=== PATIENT | male | born 1945 | race African-American/Black ===

== ENCOUNTER 2017-07-25 17:29 | Emergency (ER) | payer MEDICARE, MEDICAID ==
[~2017-07-25] VITALS: Ht 180.3 cm; Wt 109.1 kg
[~2017-07-25 17:29] MED LIST: ACCUPRIL10 MG PO; ACCUPRIL20TAB PO; ACCURETIC 25 MG1 TAB PO; ALDACTONE 100M100 MG PO; AMLODIPINE5 MG PO; ANTI-GAS 8080 MG PO; B-12 100 MCG PO; B-12500 MCG PO; CEFTIN500 MG PO; COLACE 100100 MG/CAP PO; COLACE-T100 MG PO; DAZIDOX20 MG PO; DEXILANT60 MG PO; DILAUDID 2MG TAB2 MG PO; DOCUSATE100 MG PO; ENULOSE10 GM/151 PO; EPA FISH OIL1000 MG PO; FERRO-TIME325 MG PO; FERROUS SULFATE65 MG PO; FOLIC ACID 11 MG/TA1 PO; FOLIC ACID800 MCG PO; FUROCOT40 MG PO; GLUCOPHAGE XR500 M1 PO; GLUCOPHAGE500 MG/TAB PO; HCTZ 25MG TAB25 MG PO; HUMULIN 70/3100 U/M1 SQ; INDERAL 10MG10 MG PO; INDERAL10 MG PO; KEPPRA 500MG500 MG PO; LACTULOSE SYRUP1 ML PO; LACTULOSE10 GM/15 M PO; LANTUS SOLOS100 U/ML SQ; LANTUS100 U/ML; LANTUS100 U/ML SC; LASIX 20MG TABL20 MG PO; LASIX 40MG TABL40 MG PO; LEVAQUIN 5500 MG/TA1 PO; LEVBID0.375 MG PO; METFORMIN500 MG PO; METOPROLOL SUC100 MG PO; MS CONTIN15 MG PO; MULTI VITAMINS1 TAB PO; NEURONTIN300 MG/CAP PO; NEXIUM 20MG20 MG PO; NEXIUM 40MG40 MG PO; NORVASC 5MG5 MG/TAB PO; NORVASC5 MG PO; NOVOLIN 70/30 710 ML SQ; NOVOLIN 70/301.5 M1 SC; NOVOLIN 70/301.5 ML SC; NOVOLIN R100 U/ML IJ; OMEPRAZOLE40 MG PO; OXYCODONE10 MG PO; OXYCODONE5 M1 PO; PRIL40 PO; PRILOSEC 20MG20 MG PO; PROTONIX 40MG T40 MG PO; ROXICODONE 55 MG/TAB PO; SEA OMEGA PO; SENOKOT8.6 MG PO; THERAPEUTIC VIT1 CAP PO; TOPROL XL100 MG PO; TYLENOL 325MG325 MG PO; VITAMIN B1225 MCG PO; VITAMIN B12500 MCG PO; XIFAXAN550 MG PO; ZANTAC 150150 MG PO; ZESTRIL 20MG TA20 MG PO; ZOFRAN 4MG T4 MG/TAB PO
[2017-07-25 17:40] VITALS: BP 148/89
[2017-07-25 18:03] LABS: BASO # 0.1 (0.0-0.2); BASO % 0.5 % (0.0-2.0); EOS # 0.1 (0.0-0.7); EOS % 0.7 % (0-4.0); GRAN # 6.4 (1.4-6.5); GRAN % 65.7 % (42.2-75.2); LYMPH # 2.4 (1.2-3.4); LYMPH % 24.7 % (20.0-51.0); MEAN CELL VOLUME 84 fl (80.0-100.0); MEAN CORPUSCULAR HGB CONC 32 g/dl (33.0-37.0); MEAN PLATELET VOLUME 9.6 fl (7.4-10.4); MONO # 0.8 (0.1-0.6); MONO % 7.9 % (1.7-9.3); PLATELET COUNT 316 K/mm3 (130-400); REDCELL DISTRIBUTION WIDTH-CV 16.1 % (11.5-14.5)
[2017-07-25 18:07] LABS: HEMATOCRIT 31.9 % (42.0-52.0); HEMOGLOBIN 10.2 g/dl (13.5-18.0); MEAN CORPUSCULAR HEMOGLOBIN 27 pg (27.0-31.0)
[2017-07-25 18:08] LABS: INR 1.3 (0.8-3.0); PROTHROMBIN TIME 14.8 SECONDS (9.7-12.8)
[2017-07-25 18:11] LABS: ALANINE AMINOTRANSFERASE 28 U/L (21-72); ALBUMIN 3.9 gm/dL (3.5-5.0); ALKALINE PHOSPHATASE 104 U/L (50-136); ANION GAP 16 mmol/L (7-16); AST,SGOT 25 U/L (15-37); BILIRUBIN,TOTAL 0.5 mg/dL (0.0-1.0); BLOOD UREA NITROGEN 33 mg/dL (9-20); C-REACTIVE PROTEIN 1.5 mg/dL (0.0-0.9); CALCIUM 9.9 mg/dL (8.4-10.2); CHLORIDE 110 mmol/L (98-107); CREATININE, serum 1.67 mg/dL (0.66-1.25); GLUCOSE 162 mg/dL (74-106); POTASSIUM 4.3 mmol/L (3.4-5.0); SODIUM 140 mmol/L (137-145); TOTAL PROTEIN 9.6 gm/dL (6.4-8.2)
[2017-07-25 18:13] LABS: CARBON DIOXIDE 14 mmol/L (22-30)
[2017-07-25 18:22] LABS: TROPONIN-I < 0.012 ng/mL (0.000-0.034)
[2017-07-25 18:39] LABS: ARTERIAL BLD GAS TCO2 CT 13.7; ARTERIAL BLOOD GAS BASE EXCESS -9.4 (-2-2); ARTERIAL BLOOD GAS HCO3 13.1 meq/L (22-26); ARTERIAL BLOOD GAS PO2 103.2 mmHg (80-100); ARTERIAL BLOOD GAS pH 7.42 (7.35-7.45)
[2017-07-25 18:40] LABS: ARTERIAL BLOOD GAS PCO2 20.5 mmHg (35-45)
[2017-07-25 20:38] VITALS: PULSE 82
== END 2017-07-25 20:38 | disposition home or self-care (01) ==
LOC: COL.ER 17:29
PROVIDERS: Family Medicine
DX: G89.29 Other chronic pain (principal); R07.9 Chest pain, unspecified; R10.32 Left lower quadrant pain; R10.13 Epigastric pain; I25.2 Old myocardial infarction; I10 Essential (primary) hypertension; E11.9 Type 2 diabetes mellitus without complications; Z79.4 Long term (current) use of insulin
CPT/HCPCS: J2270; J7030

== ENCOUNTER 2019-06-24 09:58 | Day surgery (SDC) | payer MEDICARE, MEDICAID ==
[~2019-06-24] VITALS: Ht 180.3 cm; Wt 107.0 kg
[~2019-06-24 09:58] MED LIST changes: -B-12 100 MCG PO; +SEA OMEGA 30 121 SGL PO; +VITAMIN B12 681 TAB PO
[2019-06-24 10:26] VITALS: BP 129/64; PULSE 91; TEMP 98.6
[2019-06-24] MEDS ORDERED: FOLIC ACID0.4 MG PO (10:43)
[2019-06-24] MEDS ORDERED: TOVIAZ4 MG PO (10:46)
[2019-06-24] MEDS ORDERED: PRIL40 PO (10:47)
[2019-06-24] MEDS ORDERED: IRON TABLETS325 MG PO (10:47)
[2019-06-24] MEDS ORDERED: MYLICON 8080 MG/TAB. PO (10:48)
[2019-06-24] MEDS ORDERED: ALDACTONE 100M100 MG PO (10:48)
[2019-06-24] MEDS ORDERED: GARLIC100 MG PO (10:49)
[2019-06-24] MEDS ORDERED: LASIX 20MG TABL20 MG PO (10:50)
[2019-06-24] MEDS ORDERED: BUPRENORPHINE HC8 MG SL (10:50)
[2019-06-24] MEDS ORDERED: HCTZ 25MG TAB25 MG PO (10:50)
[2019-06-24 11:11] VITALS: BP 129/69; PULSE 77; TEMP 98.7
--- NOTE | 2019-06-24 11:11 | NUR ---
Pt returns from endo procedure via cart. Pt ambulates with RN assist from cart to recliner. Monitors on and alarms set. Call light within reach. Report received from HARJINDER Galvan. Pt requests water and muffin. Gag reflex returned. Pt drowsy, but answering all questions appropriately. No family present.
[2019-06-24 11:15] VITALS: BP 138/71; PULSE 77
[2019-06-24 11:30] VITALS: BP 140/72; PULSE 74
--- NOTE | 2019-06-24 11:30 | NUR ---
Pt remains drowsy but answers all questions appropriately. Pt taking food and drink well. Pt voices not complaints.
[2019-06-24 11:45] VITALS: BP 138/71; PULSE 72
[2019-06-24 12:00] VITALS: BP 125/65; PULSE 82
--- NOTE | 2019-06-24 12:05 | NUR ---
Discharge instructions given to patient. Pt remains somewhat drowsy and voices understanding. Pt's ride called. Handed pt a thank you card, discharge instructions, diagnosis information, and a discharge med sheet. All questions answered to his satisfaction.
--- NOTE | 2019-06-24 12:15 | NUR ---
Pt transferred out of hospital via wheelchair and this RN assist to waiting private vehicle driven by transport service.
== END 2019-06-24 12:15 | disposition home or self-care (01) ==
LOC: SDCO 09:58
DX: I85.00 Esophageal varices without bleeding (principal); K74.60 Unspecified cirrhosis of liver; K21.9 Gastro-esophageal reflux disease without esophagitis; D64.9 Anemia, unspecified; E11.9 Type 2 diabetes mellitus without complications; I10 Essential (primary) hypertension; M19.90 Unspecified osteoarthritis, unspecified site; F32.9 Major depressive disorder, single episode, unspecified; Z79.899 Other long term (current) drug therapy; Z79.891 Long term (current) use of opiate analgesic; Z85.46 Personal history of malignant neoplasm of prostate; Z79.84 Long term (current) use of oral hypoglycemic drugs
CPT/HCPCS: J2250; J3010

== ENCOUNTER → 2020-01-25 | Outpatient (CLI) | payer MEDICARE, MEDICAID ==
[~2020-01-25] MED LIST changes: +BUPRENORPHINE HC8 MG SL; +FOLIC ACID0.4 MG PO; +GARLIC100 MG PO; +IRON TABLETS325 MG PO; +MYLICON 8080 MG/TAB. PO; +TOVIAZ4 MG PO
== END ==
LOC: MC.RAD 14:00
DX: N63.10 Unspecified lump in the right breast, unspecified quadrant (principal); N62 Hypertrophy of breast